=== PATIENT | female | born 1980 | race Caucasian/White ===

== ENCOUNTER → 2024-02-09 | Outpatient (CLI) | payer BC, SELFPAY ==
[2024-02-09 17:10] LABS: Albumin, Serum 4.6 gm/dL (3.5-5.0); Anion Gap 6 (7-16); BUN/Creatinine Ratio 15 Ratio (12-20); Blood Urea Nitrogen 15 mg/dL (9-23); Calcium 9.4 mg/dL (8.3-10.6); Calcium (Corrected) 9.4 mg/dL (8.5-10.1); Carbon Dioxide 29.6 mMol/L (20.0-31.0); Chloride 101 mMol/L (98-107); Free T4 (Free Thyroxine) 1.16 ng/dL (0.89-1.76); Glucose 110 mg/dL (74-106); Osmolality,Calculated 275 (275-295); Phosphorous 3.9 mg/dL (2.4-5.1); Potassium 3.8 mMol/L (3.4-5.1); Sodium 137 mMol/L (136-145); Thyroid Stimulating Hormone 6.09 uIU/mL (0.55-4.78); eGFR > 60 See Note
== END | disposition home or self-care (01) ==
LOC: COPL 15:40
PROVIDERS: PCP Internal Medicine; Referring Provider Internal Medicine; Visit Provider Internal Medicine
DX: I10 Essential (primary) hypertension (principal); E03.9 Hypothyroidism, unspecified
CPT/HCPCS: 36415; 80069; 84439; 84443

== ENCOUNTER → 2024-04-26 | Outpatient (CLI) | payer BC, SELFPAY ==
--- NOTE | 2024-04-26 14:30 | XR_ITS ---
Examination: Screening digital mammography, bilateral Computer aided detection 3-D breast Tomosynthesis, bilateral Date and time of exam: April 26, 2024 1422 hours Compared to mammograms dating to February 25, 2018 Indication: Screening, patient states right breast pain beginning 2 days ago, family history breast cancer Technique: Nonmagnified MLO, CC views of the breasts to been obtained, reconstructed from 3-D Tomosynthesis images. R2 computer aided detection program utilized for evaluation of suspicious masses and/or abnormal calcifications. 3-D Tomosynthesis images obtained. Findings: The breasts are heterogeneously dense, which may obscure small masses Skin lesion lower right breast MLO view Benign calcifications No interval suspicious masses Impression: BI-RADS category II: Benign Findings. Recommend 1 year follow-up mammogram. Given the patient's presentation, right breast pain, recommend bilateral breast sonography follow-up
== END | disposition home or self-care (01) ==
LOC: CDIM 14:10
PROVIDERS: Referring Provider Internal Medicine; Visit Provider Internal Medicine
DX: Z12.31 Encounter for screening mammogram for malignant neoplasm of breast (principal); R92.323 Mammographic fibroglandular density, bilateral breasts; R92.1 Mammographic calcification found on diagnostic imaging of breast
CPT/HCPCS: 77063; 77067

== ENCOUNTER → 2024-05-04 | Outpatient (CLI) | payer BC, SELFPAY ==
--- NOTE | 2024-05-04 15:30 | XR_ITS ---
Examination: Breast ultrasound complete, bilateral Date and time of exam: May 04, 2024 1606 hrs. Indications: Right breast pain beginning 10 days ago Technique: Real-time grayscale ultrasonographic imaging bilateral breasts, including all 4 quadrants as well as nipple retroareolar and axillary regions. Findings: No cystic or solid mass involving either breast Impression: BI-RADS Category 1: Negative study
== END | disposition home or self-care (01) ==
PROVIDERS: PCP Internal Medicine; Referring Provider Internal Medicine; Visit Provider Internal Medicine
DX: N64.4 Mastodynia (principal)
CPT/HCPCS: 76641

== ENCOUNTER → 2024-05-24 | Outpatient (CLI) | payer BC, SELFPAY ==
[2024-05-24 08:08] LABS: Collection Type, Urine Clean Catch
[2024-05-24 08:32] LABS: Basophils % (Auto) 0 % (0-2.5); Eosinophils # (Auto) 0.2 Thou/mm3 (0.0-0.5); Eosinophils % (Auto) 4 % (0-10); Hematocrit 40.5 % (36.0-46.0); Hemoglobin 13.7 g/dL (12.0-16.0); Immature Granulocytes % (Auto) 0 % (0-0); Immature Granulocytes Auto 0.01 Thou/mm3 (0.00-0.00); Lymphocytes # (Auto) 1.2 Thou/mm3 (1.0-4.8); Lymphocytes % (Auto) 24 % (10-50); Mean Corpuscular HGB Conc 33.8 g/dl (31.0-37.0); Mean Corpuscular Hemoglobin 32.2 pg (25.0-35.0); Mean Corpuscular Volume 95 fL (80-100); Monocytes # (Auto) 0.2 Thou/mm3 (0.0-0.8); Monocytes % (Auto) 4 % (0-12); Neutrophils # (Auto) 3.5 Thou/mm3 (1.8-7.7); Neutrophils % (Auto) 68 % (37-80); Nucleated Red Blood Cell % 0 /100 WBC (0); Platelet Count 203 Thou/mm3 (140-440); RDW Standard Deviation 41.1 fL (36.4-46.3); Red Blood Count 4.25 Miln/mm3 (4.00-5.20); White Blood Count 5.2 Thou/mm3 (3.6-11.0)
[2024-05-24 08:37] LABS: Glucose Estimated Average 97 mg/dL (80-131)
[2024-05-24 08:44] LABS: Bilirubin,Urine Negative (Negative); Blood,Urine Trace (Negative); Clarity,Urine Turbid (Clear/Hazy); Color,Urine Yellow (Lt Yel-Yel); Culture Indicated,Urine Not Indicated; Glucose, Urine Negative (Negative); Ketones,Urine Negative (Negative); Leukocyte Esterase,Urine Positive (Negative); Nitrite,Urine Negative (Negative); PH,Urine 5.5 (5.0-7.0); Protein,Urine Trace (Neg - Trace); RBC,Urine 3 /hpf (0-3); Specific Gravity,Urine 1.024 (1.001-1.035); Squamous Epithelial Cell,Urine 18 /hpf (0-5); Urobilinogen,Urine Negative mg/dL (0.0-1.0); WBC,Urine 2 /hpf (0-5)
[2024-05-24 08:56] LABS: Alanine Aminotransferase 22 U/L (10-49); Albumin, Serum 4.2 gm/dL (3.5-5.0); Albumin/Globulin Ratio 1.6 (1.2-2.2); Alkaline Phosphatase 73 U/L (46-116); Anion Gap 9 (7-16); Aspartate Amino Transferase 21 U/L (0-34); BUN/Creatinine Ratio 13 Ratio (12-20); Bilirubin,Total 1.7 mg/dL (0.3-1.2); Blood Urea Nitrogen 10 mg/dL (9-23); Calcium 9.1 mg/dL (8.3-10.6); Calcium (Corrected) 9.1 mg/dL (8.5-10.1); Carbon Dioxide 26.8 mMol/L (20.0-31.0); Cardiac Risk Estimate 3.2 RATIO (3.7-5.6); Chloride 106 mMol/L (98-107); Cholesterol 143 mg/dL (132-200); Creatinine (Component) 0.8 mg/dL (0.6-1.3); Globulin 2.6 gm/dL (2.3-3.5); Glucose 90 mg/dL (74-106); HDL Cholesterol 45 mg/dL (40-60); LDL Cholesterol,Calculated 79 mg/dL (0-130); Osmolality,Calculated 282 (275-295); Potassium 4.1 mMol/L (3.4-5.1); Sodium 142 mMol/L (136-145); Thyroid Stimulating Hormone 4.52 uIU/mL (0.55-4.78); Total Protein 6.8 gm/dL (5.7-8.2); Triglycerides 93 mg/dL (30-150); Uric Acid 5.2 mg/dL (3.1-7.8); eGFR > 60 See Note
[2024-05-24 08:59] LABS: Vitamin B12 1219 pg/mL (211-911); Vitamin D 25 Hydroxy Total 54.4 ng/mL (7.3-40.2)
== END | disposition home or self-care (01) ==
PROVIDERS: PCP Internal Medicine; Referring Provider Internal Medicine; Visit Provider Internal Medicine
DX: Z00.00 Encounter for general adult medical examination without abnormal findings (principal); I10 Essential (primary) hypertension
CPT/HCPCS: 36415; 80053; 80061; 81001; 82306; 82607; 83036; 84443; 84550; 85025

== ENCOUNTER 2024-06-14 06:49 | Emergency (ER) | payer BC, SELFPAY ==
[2024-06-14 06:50] VITALS: BMI 38.3
[2024-06-14 07:13] VITALS: BP 145/84; PULSE 60; RESP 16; TEMP 36.7; O2SAT 98; BMI 38.3
--- NOTE | 2024-06-14 07:20 | XR_ITS ---
Examination: CT abdomen and pelvis without contrast. Coronal 3-D reconstructions. Sagittal 2-D reconstructions. Date and time of exam:June 14, 2024 0832 hrs. CTDI: vol (mGy): 15.5 DLP: (mGycm): 857 Technique: Axial images of the abdomen have been obtained, 3 mm slice thickness Intravenous contrast material has not been administered. Low dose protocols were performed. One or more of the following dose reduction techniques were used; automated exposure control, adjustment of the mA and/or KV according to patient size, use of iterative reconstruction technique. Findings: No focal liver or splenic lesions Gallbladder not visualized Spleen AP dimension 12 cm Mild bilateral renal parenchymal scar formation No renal or ureteral calculi, no hydronephrosis Normal appendix Colonic diverticulosis Acute diverticulitis junction descending colon and sigmoid colon no pelvic abscess Bladder intact Impression: Mild renal parenchymal scar formation Acute diverticulitis junction descending colon and sigmoid colon, no pelvic abscess
[2024-06-14] MEDS: METOCLOPRAMIDE 5 MG TABLET 10 MG PO (07:36)
[2024-06-14 07:44] LABS: Collection Type, Urine Clean Catch
[2024-06-14 07:49] LABS: Bilirubin,Urine Negative (Negative); Blood,Urine Negative (Negative); Clarity,Urine Clear (Clear/Hazy); Color,Urine Colorless (Lt Yel-Yel); Culture Indicated,Urine Not Indicated; Glucose, Urine Negative (Negative); Ketones,Urine Negative (Negative); Leukocyte Esterase,Urine Negative (Negative); Nitrite,Urine Negative (Negative); Protein,Urine Negative (Neg - Trace); RBC,Urine < 1 /hpf (0-3); Specific Gravity,Urine 1.004 (1.001-1.035); Squamous Epithelial Cell,Urine 2 /hpf (0-5); Urobilinogen,Urine Negative mg/dL (0.0-1.0); WBC,Urine 1 /hpf (0-5)
[2024-06-14 07:55] LABS: Basophils % (Auto) 0 % (0-2.5); Eosinophils # (Auto) 0.2 Thou/mm3 (0.0-0.5); Eosinophils % (Auto) 4 % (0-10); Hematocrit 42.2 % (36.0-46.0); Hemoglobin 14.6 g/dL (12.0-16.0); Immature Granulocytes % (Auto) 0 % (0-0); Immature Granulocytes Auto 0.01 Thou/mm3 (0.00-0.00); Lymphocytes # (Auto) 1.5 Thou/mm3 (1.0-4.8); Lymphocytes % (Auto) 31 % (10-50); Mean Corpuscular HGB Conc 34.6 g/dl (31.0-37.0); Mean Corpuscular Volume 93 fL (80-100); Monocytes # (Auto) 0.3 Thou/mm3 (0.0-0.8); Monocytes % (Auto) 7 % (0-12); Neutrophils # (Auto) 2.6 Thou/mm3 (1.8-7.7); Neutrophils % (Auto) 57 % (37-80); Nucleated Red Blood Cell % 0 /100 WBC (0); Platelet Count 211 Thou/mm3 (140-440); RDW Standard Deviation 41.2 fL (36.4-46.3); Red Blood Count 4.56 Miln/mm3 (4.00-5.20); White Blood Count 4.6 Thou/mm3 (3.6-11.0)
[2024-06-14 08:02] LABS: HCG Qualitative,Urine Negative
[2024-06-14 08:14] LABS: Alanine Aminotransferase 22 U/L (10-49); Albumin, Serum 4.5 gm/dL (3.5-5.0); Albumin/Globulin Ratio 1.4 (1.2-2.2); Alkaline Phosphatase 80 U/L (46-116); Anion Gap 8 (7-16); Aspartate Amino Transferase 25 U/L (0-34); BUN/Creatinine Ratio 11 Ratio (12-20); Bilirubin,Total 2.3 mg/dL (0.3-1.2); Blood Urea Nitrogen 10 mg/dL (9-23); Calcium 9.5 mg/dL (8.3-10.6); Calcium (Corrected) 9.5 mg/dL (8.5-10.1); Carbon Dioxide 28.1 mMol/L (20.0-31.0); Chloride 105 mMol/L (98-107); Creatinine (Component) 0.9 mg/dL (0.6-1.3); Estimated Creatinine Clearance 100.4 mL/min (>60); Globulin 3.2 gm/dL (2.3-3.5); Glucose 93 mg/dL (74-106); Lipase 32 U/L (12-53); Osmolality,Calculated 280 (275-295); Potassium 4.1 mMol/L (3.4-5.1); Sodium 141 mMol/L (136-145); Total Protein 7.7 gm/dL (5.7-8.2); eGFR > 60 See Note
--- NOTE | 2024-06-14 11:41 | EDNOTE_ITS ---
<Statement entered by Caroline Kaiser MD - 06/14/24 17:07> As co-signing physician, I was present and available for consult prn. I concur with the plan and care as documented by the midlevel provider. Nausea/Vomit./Diarrhea-RME/HPI General Chief complaint: Abdominal Pain Stated complaint: ABD PAIN AND NAUSEA Time Seen by Provider: 06/14/24 06:55 Arrival date/time: 06/14/24 06:49 44-year-old female presents to the emergency department today complains of left- sided lower abdominal pain as well as nausea ongoing for approximately 1 week patient reports history of diverticulitis Limitations: no limitations Related Data Home Medications ?Medication ?Instructions ?Recorded ?Confirmed levothyroxine 112 mcg tablet 112 mcg PO QDAY #0 tabs 1 03/24/16 10/03/20 liothyronine 5 mcg tablet 5 mcg PO QDAY 05/18/1810/03 spironolactone 25 mg tablet 50 mg PO QDAY 06/27/20 Previous Rx's ?Medication ?Instructions ?Recorded metronidazole 500 mg tablet 500 mg PO TID #21 tabs ciprofloxacin HCl 500 mg tablet 500 mg PO BID 7 days # 14 tabs 06/14/24 metronidazole 500 mg tablet 500 mg PO TID 7 days #21 t abs 06/14/24 Allergies Allergy/AdvReac Type Severity Reaction Status Date / Time lidocaine Allergy Severe VOMITING Verified 01/23/22 06:16 Penicillins Allergy Severe HIVES Verified 01/23/22 06:16 Review of Systems Review of Systems Systems Reviewed: All systems reviewed, normal except as documented Constitutional Constitutional: Reports system reviewed and no additional complaints, except as documented, Denies fever(s) and Denies headache(s) Eyes Eyes: Reports system reviewed and no additional complaints, except as documented and Denies blurry vision ENT Ears, Nose, Mouth, and Throat: Reports system reviewed and no additional complaints, except as documented, Denies headache(s), Denies nasal congestion and Denies nasal discharge Cardiovascular Cardiovascular: Reports system reviewed and no additional complaints, except as documented, Denies chest pain and Denies dyspnea Respiratory Respiratory: Reports system reviewed and no additional complaints, except as documented, Denies chest congestion, Denies cough and Denies dyspnea Gastrointestinal Gastrointestinal: Reports system reviewed and no additional complaints, except as documented and Denies abdominal pain Integumentary/Breasts Skin/Breast: Reports system reviewed and no additional complaints, except as documented and Denies rash Neurologic Neurologic: Reports system reviewed and no additional complaints, except as documented, Reports as per HPI and Denies headache(s) Past Medical History Past Medical History NEUROLOGIC: Positive Neurological Disorders and Migraine; Negative Seizures CARDIAC: Positive Cardiac Disorders, Edema, Hypertension and Varicose Veins; Negative Congestive Heart Failure RESPIRATORY: Positive Asthma; Negative Chronic Obstructive Pulmonary Disease (COPD) GASTROINTESTINAL: Positive Gastrointestinal Disorders, Gall Bladder Disease and Diverticulitis; Negative Hepatitis GENITOURINARY: Negative Genitourinary Disorders or Renal Disease REPRODUCTIVE: Positive Previous Pregnancies MUSCULOSKELETAL: Negative Musculoskeletal Disorders ENDOCRINE: Positive Endocrine Disorders and Hypothyroidism; Negative Diabetes Mellitus Type 1 or Diabetes Mellitus Type 2 HEMATOLOGIC: Positive Blood Disorders and Anemia; Negative Sickle Cell Disease OTHER HISTORY: Positive Anesthesia Reactions and Chicken Pox; Negative Hospitalization, Autoimmune Disease, Shingles, Falls, Blood Transfusions, Chemotherapy, Radiation Therapy, MRSA or Cancer Family History FAMILY HISTORY: Positive Family Cardiac Disorders, Family Gastrointestinal Problems and Family Surgery; Negative Family Psychiatric Problems, Family Respiratory Disorders, Family Cancer or Family Anesthesia Reaction Surgical History SURGICAL: Positive Abdominal Surgery and Section; Negative Cardiac Surgery or Endocrine Surgery Social History SMOKING STATUS: Never smoker SUBSTANCE USE: does not use ED Exam General Limitations: Present no limitations General appearance: Present alert and in no apparent distress Head Head exam: Present atraumatic Eye Eye exam: Present normal appearance, PERRL and EOMI ENT ENT exam: Present normal exam, normal oropharynx and mucous membranes moist Neck Neck exam: Present normal inspection, full ROM and trachea midline Chest Chest inspection: Present normal inspection and symmetric chest wall rise Respiratory Respiratory exam: Present normal lung sounds bilaterally Cardiovascular Cardiovascular exam: Present regular rate, normal rhythm and normal heart sounds Abdominal Exam Abdominal exam: Present soft, tenderness and normal bowel sounds; Absent distention, guarding, rebound or rigidity Extremities Exam Extremities exam: Present normal inspection and full ROM Back Exam Back exam: Present normal inspection and full ROM Neurological Exam Neurological exam: Present alert, oriented X3 and CN II-XII intact Psychiatric Psychiatric exam: Present normal affect and normal mood Skin Skin exam: Present warm, dry, intact and normal color Course Quality Measures none Orders Category Date Time Status CT abdomen pelvis wo con Stat Exams 06/14/24 07:20 Completed CBC Stat Lab 06/14/24 07:40 Completed Comprehensive Metabolic Panel Stat Lab 06/14/24 07:40 Completed HCG Qualitative,Urine Stat Lab 06/14/24 07:37 Completed Lipase Stat Lab 06/14/24 07:40 Completed UA, C/S IF [Urinalysis, C/S if Indicated] Stat Lab 06/14/24 07:37 Completed Metoclopramide [Reglan] Med 06/14/24 07:20 Discontinued 10 mg PO X1 ONE Sterile Water Med 06/14/24 12:00 Discontinued 2.1 ml IM X1 ONE cefTRIAXone [Rocephin] Med 06/14/24 12:00 Discontinued 1,000 mg IM X1 ONE Vital Signs Vital signs: Vital Signs Temperature 98.1 F 06/14/24 07:13 Pulse Rate 60 06/14/24 07:13 Respiratory Rate 16 06/14/24 07:13 Blood Pressure 145/84 H 06/14/24 07:13 Pulse Oximetry (%) 98 06/14/24 07:13 Oxygen Delivery Method Room Air 06/14/24 07:13 O2 saturation 98% room air within normal limit Nausea/Vomiting/Diarrhea MDM Narrative MDM Narrative:: 44-year-old female presents to the emergency department today complains of left- sided lower abdominal pain as well as nausea ongoing for approximately 1 week p atient reports history of diverticulitis Based on symptomatology symptoms are consistent with diverticulitis Lab work as well as imaging obtained lab work unremarkable imaging consistent with diverticulitis Patient given Rocephin here Patient discharged home with antibiotics Patient instructed like to follow-up with PCP as soon as possible for worsening symptoms return immediately Patient data External records reviewed:: [facility] previous records Clinical information provided by:: patient Social determinants that could affect healthcare access:: none Patient has the following chronic illnesses:: see history How is presenting disease/condition affected by chronic disease/condition?: caused by Evaluation data The following diagnostics were reviewed and interpreted by me:: lab results and radiology exam(s) Lab and/or radiology exams considered but not ordered:: Labs radiology obtain Interpretation Summary: Reviewed by me Medications / Prescriptions Medications / Prescriptions considered but not ordered:: Given Medication administrations:: Medication Administration History Discontinued Medications Ceftriaxone Sodium (Ceftriaxone Sod Inj 1,000 Mg Vial) 1,000 mg IM X1 ONE Stop: 06/14/24 12:01 Last Admin: 06/14/24 12:10 Dose: 1,000 mg Documented By: TM Metoclopramide HCl (Metoclopramide 5 Mg Tablet) 10 mg PO X1 ONE Stop: 06/14/24 07:21 Last Admin: 06/14/24 07:36 Dose: 10 mg Documented By: JONATHAN Sterile Water (Water, Sterile Inj 10 Ml Vial) 2.1 ml IM X1 ONE Stop: 06/14/24 12:01 Last Admin: 06/14/24 12:10 Dose: 2.1 ml Documented By: TM Given Consultations Consultation(s) initiated? (list below): No Diagnosis Nausea Differential Diagnosis: food poisoning, gastroenteritis and other (Diverticulitis) Most likely diagnosis given after review of the tests above:: Diverticulitis Admission Indicated Admission indicated?: not indicated Admission Request Was there a request for admission?: No Disposition Plan Disposition Plan: Discharge Discharge Attestation Discharge Attestation: The patient and all family members were given an opportunity to ask questions and understood the discharge instructions. Discharge instructions specifically effects, indications for sooner follow up or return to the emergency department, and the expected course of current diagnosis. Patient condition: Stable Discharge Plan Plan Patient Disposition: HOME (Self Care) Disposition Comment: Stable Prescriptions/Referrals Prescriptions/Med Rec: New metronidazole 500 mg tablet 500 mg PO TID 7 Days Qty: 21 0RF ciprofloxacin HCl 500 mg tablet 500 mg PO BID 7 Days Qty: 14 0RF No Action levothyroxine 112 mcg Tablet 112 mcg PO QDAY Qty: 0 liothyronine 5 mcg Tablet 5 mcg PO QDAY spironolactone 25 mg Tablet 50 mg PO QDAY metronidazole 500 mg tablet 500 mg PO TID Qty: 21 0RF Referrals: Yan Hutchins MD [Primary Care Provider] - 06/15/24 Problem List Clinical Impression: Acute diverticulitis Patient/Caregiver Discharge Instructions Education Materials: ED Diverticulitis Additional Instructions: Please follow up with your primary care doctor in the next 24-48hrs for any worsening symptoms return here immediately Print Language: Vincentian Stand Alone Forms: Sara Award Info., Work/School Release, Patient Portal Info Letter PA/YONY Supervising Physician PA/YONY Supervising Physician: Dr. KAISER
[2024-06-14] MEDS: cefTRIAXone SOD INJ 1,000 MG VIAL 1000 MG IM (12:10)
[2024-06-14] MEDS: WATER, STERILE INJ 10 ML VIAL 2.1 ML IM (12:10)
--- NOTE | 2024-06-14 12:30 | PC.NURSE ---
pt monitored after med administration. pt tolerated well prior to discharge
== END 2024-06-14 12:31 | disposition home or self-care (01) ==
PROVIDERS: Nurse Practitioner Primary Care; Emergency Provider Emergency Medicine; PCP Internal Medicine
DX: K57.32 Diverticulitis of large intestine without perforation or abscess without bleeding (principal); I10 Essential (primary) hypertension; J45.909 Unspecified asthma, uncomplicated; E03.9 Hypothyroidism, unspecified; Z88.0 Allergy status to penicillin
CPT/HCPCS: 36415; 74176; 80053; 81001; 81025; 83690; 85025; 96372; 99284; A4216; J0696; A9270